=== PATIENT | female | born 1945 | race Caucasian/White ===

== ENCOUNTER 2021-05-31 06:54 | Inpatient (IN) | payer MEDICARE ==
[2021-05-31 08:53] LABS: Lactic Acid 2.8 mmol/L (0.5-2.2)
[2021-05-31 09:02] LABS: Troponin I Less than 0.010 ng/mL (< 0.028)
[2021-05-31] MEDS ORDERED: GUAIFENESIN SF SOLN 200 MG/10 ML UDCUP PO PRN (09:45)
[2021-05-31] MEDS ORDERED: Electrolyte Replacement Protocol 1 EACH FS SCH (09:45)
[2021-05-31] MEDS ORDERED: Cepastat Lozenges 1 LOZ PO PRN (09:45)
[2021-05-31] MEDS ORDERED: Benzonatate 100 MG CAP PO PRN (09:45)
[2021-05-31] MEDS ORDERED: Acetaminophen 325 MG TAB PO PRN (09:46)
[2021-05-31] MEDS ORDERED: Calcium Carbonate 500 MG ChewTAB PO PRN (09:46)
[2021-05-31] MEDS ORDERED: guaiFENesin ER 600 MG TAB PO SCH ×2 (10:00→11:00)
[2021-05-31] MEDS ORDERED: Sodium Chloride 0.9% 1,000 ML IV SCH (10:00)
[2021-05-31 11:00] VITALS: BMI 24.1
[2021-05-31] MEDS ORDERED: FLUoxetine HCl 20 MG CAP PO SCH (11:00)
[2021-05-31] MEDS ORDERED: Aspirin 81 mg Enteric Coated Tablet PO SCH (11:00)
[2021-05-31] MEDS ORDERED: methylPREDNISolone Sod Succ 40 MG VIAL IVP SCH (14:45)
[2021-05-31] MEDS ORDERED: FLU VACC QS2021-22(65YR UP)/PF 240 MCG/0.7 ML SYRINGE IM ONE (17:15)
[2021-05-31] MEDS: Mometasone 200 MCG/Formoterol 5 MCG 120 PUFF INHALER INH SCH (19:00)
[2021-05-31] MEDS: Famotidine 20 MG TAB PO SCH (21:52)
[2021-05-31] MEDS: cefTRIAXone\\ROCEPHIN 2 GM in Sodium Chloride 0.9% 100 ML IVPB SCH (21:52)
[2021-05-31] MEDS: Atorvastatin Calcium 40 MG TAB PO SCH (21:52)
[2021-05-31] MEDS: guaiFENesin ER 600 MG TAB PO SCH (21:52)
[2021-05-31] MEDS: Senokot S 8.6-50 MG TAB PO SCH (21:52)
[2021-05-31] MEDS: Enoxaparin Sodium 40 MG/0.4 ML SYRINGE SC SCH (21:53)
[2021-05-31] MEDS: methylPREDNISolone Sod Succ 40 MG VIAL IVP SCH (21:53)
[2021-06-01] MEDS: Azithromycin 500 MG in Sodium Chloride 0.9% 250 ML 250 ML IVPB SCH (05:19)
[2021-06-01] MEDS: methylPREDNISolone Sod Succ 40 MG VIAL IVP SCH ×3 (05:19→20:24)
[2021-06-01 06:15] LABS: Hemoglobin 9.5 g/dL (12.0-16.0); Mean Corpuscular Hemoglobin 25.5 pg (27.0-31.0); Mean Corpuscular Volume 84.9 fL (78.0-98.0); Mean Platelet Volume 7.8 fL (7.4-10.4); Platelet Count 392 thou/uL (130-400); RBC Distribution Width 19.9 % (11.5-14.5); Red Blood Cell (RBC) Count 3.74 mill/uL (4.20-5.40); White Blood Cell (WBC) Count 22.1 thou/uL (4.8-10.8)
[2021-06-01 06:32] LABS: Anion Gap 13 mmol/L (10-20); BUN (Urea Nitrogen) 15 mg/dL (9.8-20.1); Calc. Creatinine Clearance 78 mL/min (70-130); Calcium 8.8 mg/dL (7.8-10.44); Carbon Dioxide 23 mmol/L (23-31); Chloride 107 mmol/L (98-107); Glucose 112 mg/dL (83-110); Magnesium 2.1 mg/dL (1.6-2.6); Potassium 4.7 mmol/L (3.5-5.1); Sodium 138 mmol/L (136-145)
[2021-06-01] MEDS: Ondansetron PF 4 MG/2 ML Vial IVP PRN (07:00)
[2021-06-01] MEDS: Mometasone 200 MCG/Formoterol 5 MCG 120 PUFF INHALER INH SCH ×2 (08:10→19:44)
[2021-06-01 08:52] LABS: Band 6 % (5-11); Hypochromia SLIGHT = 6-15 cells (100X) (0-5/hpf); Lymphocytes 3 % (21-51); MDiff Complete? YES; Monocytes 5 % (0-10); Neutrophil 86 % (42-75); Platelet Morphology Comment Appears Adequate; Polychromasia SLIGHT = 2-3 cells (100X) (0-2/hpf)
[2021-06-01] MEDS: guaiFENesin ER 600 MG TAB PO SCH ×2 (09:11→20:23)
[2021-06-01] MEDS: FLUoxetine HCl 20 MG CAP PO SCH (09:11)
[2021-06-01] MEDS: Senokot S 8.6-50 MG TAB PO SCH ×2 (09:11→20:23)
[2021-06-01] MEDS: Aspirin 81 mg Enteric Coated Tablet PO SCH (09:11)
[2021-06-01] MEDS: Famotidine 20 MG TAB PO SCH ×2 (09:12→20:23)
[2021-06-01] MEDS: Atorvastatin Calcium 40 MG TAB PO SCH (20:24)
[2021-06-01] MEDS: Enoxaparin Sodium 40 MG/0.4 ML SYRINGE SC SCH (20:24)
[2021-06-01] MEDS: cefTRIAXone\\ROCEPHIN 2 GM in Sodium Chloride 0.9% 100 ML IVPB SCH (20:25)
[2021-06-01] MEDS ORDERED: Atorvastatin Calcium 40 MG TAB PO SCH (21:00)
[2021-06-02 05:04] LABS: Anion Gap 13 mmol/L (10-20); BUN (Urea Nitrogen) 16 mg/dL (9.8-20.1); Calc. Creatinine Clearance 72 mL/min (70-130); Calcium 9.6 mg/dL (7.8-10.44); Carbon Dioxide 26 mmol/L (23-31); Chloride 105 mmol/L (98-107); Glucose 116 mg/dL (83-110); Potassium 4.9 mmol/L (3.5-5.1); Sodium 139 mmol/L (136-145)
[2021-06-02 05:07] LABS: Hemoglobin 9.8 g/dL (12.0-16.0); Hypochromia SLIGHT = 6-15 cells (100X) (0-5/hpf); Lymphocytes 4 % (21-51); MDiff Complete? YES; Mean Corpuscular HGB CONC 31.9 g/dL (32.0-36.0); Mean Corpuscular Hemoglobin 26.9 pg (27.0-31.0); Mean Corpuscular Volume 84.5 fL (78.0-98.0); Mean Platelet Volume 7.8 fL (7.4-10.4); Monocytes 14 % (0-10); Neutrophil 82 % (42-75); Platelet Count 392 thou/uL (130-400); Platelet Morphology Comment Appears Adequate; RBC Distribution Width 19.8 % (11.5-14.5); Red Blood Cell (RBC) Count 3.65 mill/uL (4.20-5.40); White Blood Cell (WBC) Count 20.6 thou/uL (4.8-10.8)
[2021-06-02] MEDS: methylPREDNISolone Sod Succ 40 MG VIAL IVP SCH (05:22)
[2021-06-02] MEDS: Azithromycin 500 MG in Sodium Chloride 0.9% 250 ML 250 ML IVPB SCH (05:22)
[2021-06-02] MEDS: Ondansetron PF 4 MG/2 ML Vial IVP PRN (06:54)
[2021-06-02] MEDS: Mometasone 200 MCG/Formoterol 5 MCG 120 PUFF INHALER INH SCH (07:40)
[2021-06-02] MEDS: guaiFENesin ER 600 MG TAB PO SCH (08:45)
[2021-06-02] MEDS: Famotidine 20 MG TAB PO SCH (08:45)
[2021-06-02] MEDS: FLUoxetine HCl 20 MG CAP PO SCH (08:45)
[2021-06-02] MEDS: Aspirin 81 mg Enteric Coated Tablet PO SCH (08:45)
[2021-06-02] MEDS: Senokot S 8.6-50 MG TAB PO SCH (08:45)
[2021-06-02 10:09] VITALS: BP 115/63; TEMP 97.7
[2021-06-02 10:45] LABS: Lactic Acid 1.4 mmol/L (0.5-2.2)
== END 2021-06-02 13:40 | disposition home or self-care (01) | DRG 177 ==
LOC: ERS 06:54 → ERHOLD 08:25 → OBSVTOIN 09:37 → MSONC 12:16
PROVIDERS: ADMIT Internal Medicine; ATTEND Internal Medicine
DX: J69.0 Pneumonitis due to inhalation of food and vomit (principal); J96.21 Acute and chronic respiratory failure with hypoxia; J44.1 Chronic obstructive pulmonary disease with (acute) exacerbation; E87.2 Acidosis; C34.90 Malignant neoplasm of unspecified part of unspecified bronchus or lung; I69.354 Hemiplegia and hemiparesis following cerebral infarction affecting left non-dominant side; E86.1 Hypovolemia; E83.42 Hypomagnesemia; I25.10 Atherosclerotic heart disease of native coronary artery without angina pectoris; F41.9 Anxiety disorder, unspecified; E78.5 Hyperlipidemia, unspecified; Z79.82 Long term (current) use of aspirin; Z79.899 Other long term (current) drug therapy; Z90.49 Acquired absence of other specified parts of digestive tract; Z90.711 Acquired absence of uterus with remaining cervical stump
CPT/HCPCS: 36415; 71046; 80048; 83605; 83735; 85025; 90471; 90662; 94640; 99285; G0008; J0456; J0696; J1650; J2405; J2920; J3490; J7050; J7620